=== PATIENT | male | born 1970 | race African-American/Black ===

== ENCOUNTER 2018-06-08 15:38 | Inpatient (IN) | payer OTHER ==
--- NOTE | 2018-06-08 17:28 | HP ---
CIWA Score Nausea/Vomitin Muscle Tremors: 1-None Visible, but [place] Anxiety: 3 Agitation: 3 Paroxysmal Sweats: 1-Minimal Palms Moist Orientation: 0-Oriented Tacttile Disturbances: 1-Very Mild Itch/Numbness Auditory Disturbances: 0-None Visual Disturbances: 0-None Headache: 3-Moderate CIWA-Ar Total Score: 15 - Admission Criteria OASAS Guidelines: Admission for Medically Managed Detox: Requires at least one of the followin. CIWA greater than 12 2. Seizures within the past 24 hours 3. Delirium tremens within the past 24 hours 4. Hallucinations within the past 24 hours 5. Acute intervention needed for co occurring medical disorder 6. Acute intervention needed for co occurring psychiatric disorder 7. Severe withdrawal that cannot be handled at a lower level of care (continued vomiting, continued diarrhea, abnormal vital signs) requiring intravenous medication and/or fluids 8. Patient presents the following: CIWA greater than 12 Admission Criteria Met: Admission criteria met Admission ROS S - HPI Chief Complaint: alcohol withdrawal sx Allergies/Adverse Reactions: Allergies Allergy/AdvReac Type Severity Reaction Status Date / Time No Known Allergies Allergy Verified 06/08/18 17:23 History of Present Illness: 47 yo male with hx of alcohol and nicotine dependence is here seeking detox, reports first admission to detox, reports referred by his paroled officer to compelte treatment. PMHX: GERD. Denies psych hx. Denies suicidal / homicidal ideation or suicide attempts. Denies hx of seizures or blackouts. Exam Limitations: No Limitations - Ebola screening Have you traveled outside of the country in the last 21 days: No Have you had contact with anyone from an Ebola affected area: No Do you have a fever: No - Review of Systems Constitutional: Loss of Appetite, Changes in sleep EENT: reports: No Symptoms Reported Respiratory: reports: No Symptoms reported Cardiac: reports: No Symptoms Reported GI: reports: Poor Appetite, Poor Fluid Intake, Abdominal cramping : reports: No Symptoms Reported Musculoskeletal: reports: No Symptoms Reported Integumentary: reports: Dryness Neuro: reports: No Symptoms reported Endocrine: reports: No Symptoms Reported Hematology: reports: No Symptoms Reported Psychiatric: reports: Orientated x3, Agitated Other Systems: Reviewed and Negative Patient History - Patient Medical History Hx Anemia: No Hx Asthma: No Hx Chronic Obstructive Pulmonary Disease (COPD): No Hx Cancer: No Hx Cardiac Disorders: No Hx Congestive Heart Failure: No Hx Hypertension: No Hx Hypercholesterolemia: No Hx Pacemaker: No HX Cerebrovascular Accident: No Hx Seizures: No Hx Dementia: No Hx Diabetes: No Hx Gastrointestinal Disorders: Yes (GERD) Hx Liver Disease: No Hx Genitourinary Disorders: No Hx Sexually Transmitted Disorders: No Hx Renal Disease (ESRD): No Hx Thyroid Disease: No Hx Human Immunodeficiency Virus (HIV): No Hx Hepatitis C: No Hx Depression: No Hx Suicide Attempt: No Hx Bipolar Disorder: No Hx Schizophrenia: No - Patient Surgical History Past Surgical History: Yes Other Surgical History: open heart 1985 - PPD History Previous Implant?: No - Smoking Cessation Smoking history: Current every day smoker Have you smoked in the past 12 months: Yes Aproximately how many cigarettes per day: 8 Hx Chewing Tobacco Use: No Initiated information on smoking cessation: Yes 'Breaking Loose' booklet given: 06/08/18 - Substance & Tx. History Hx Alcohol Use: Yes Hx Substance Use: Yes Substance Use Type: Alcohol Hx Substance Use Treatment: No - Substances abused Alcohol Substance route: Oral Frequency: 3-6 times per week Amount used: 10 nips Age of first use: 29 Date of last use: 06/08/18 Family Disease History - Family Disease History Family History: Denies Admission Physical Exam S - Vital Signs Vital Signs: Vital Signs - 24 hr 06/08/18 17:13 Temperature 97.4 F L Pulse Rate 85 Respiratory 18 Rate Blood Pressure 129/92 - Physical General Appearance: Yes: Disheveled, Mild Distress, Alcohol on Breath, Thin, Irritable, Anxious HEENTM: Yes: EOMI, Hearing grossly Normal, Normal ENT Inspection, Pharynx Normal , Tm's normal, Rhinorrhea, Other (cheilitis) Respiratory: Yes: Chest Non-Tender, Lungs Clear, Normal Breath Sounds, No Respiratory Distress, No Accessory Muscle Use Neck: Yes: Within Normal Limits Breast: Yes: Breast Exam Deferred Cardiology: Yes: Regular Rhythm, Regular Rate, Murmur Abdominal: Yes: Normal Bowel Sounds, Non Tender, Flat, Soft Genitourinary: Yes: Within Normal Limits Back: Yes: Normal Inspection Musculoskeletal: Yes: full range of Motion, Gait Steady, Pelvis Stable Extremities: Yes: Normal Capillary Refill, Normal Inspection, Normal Range of Motion, Non-Tender Neurological: Yes: check and transfer beader II-XII NML intact, Fully Oriented, Alert, Motor Strength 5/5, Depressed Affect Integumentary: Yes: Normal Color, Warm, Diaphoresis Lymphatic: Yes: Within Normal Limits - Diagnostic (1) Alcohol dependence with uncomplicated withdrawal Current Visit: Yes Status: Acute (2) Nicotine dependence Current Visit: Yes Status: Acute Qualifiers: Nicotine product type: cigarettes (3) GERD (gastroesophageal reflux disease) Current Visit: Yes Status: Chronic Cleared for Admission S - Detox or Rehab [facility] Level of Care: Medically Managed Detox Regimen/Protocol: Librium Breathalyzer - Breathalyzer Breathalyzer: 0.322 Urine Drug Screen - Test Device Lot number: [id number] Expiration date: 06/07/19 - Control Is test valid?: Yes - Results Drug screen NEGATIVE: Yes Inpatient Rehab Admission - Rehab Decision to Admit Inpatient rehab admission?: No
[2018-06-08] MEDS ORDERED: METHOCARBAMOL 500 MG TABLET PO PRN (17:35)
[2018-06-08] MEDS ORDERED: MAGNESIUM CITRATE 300 ML BOTTLE PO PRN (17:35)
[2018-06-08] MEDS ORDERED: MENTHOL/PHENOL 1 EACH UD MM PRN (17:35)
[2018-06-08] MEDS ORDERED: hydrOXYzine PAMOATE 25 MG CAPSULE (FP) PO PRN (17:35)
[2018-06-08] MEDS ORDERED: MAGNESIUM HYDROX 2400MG/30ML ORAL SUSPENSION 30 ML CUP PO PRN (17:35)
[2018-06-08] MEDS ORDERED: BISMUTH SUBSALICYLATE 524 MG/30 ML UD PO PRN (17:35)
[2018-06-08] MEDS ORDERED: ACETAMINOPHEN 325 MG TABLET (FP) PO PRN ×2 (17:35)
[2018-06-08] MEDS ORDERED: chlordiazePOXIDE HCL 25 MG CAPSULE PO PRN (17:35)
[2018-06-08] MEDS ORDERED: NICOTINE POLACRILEX 2 MG GUM BUC PRN (17:35)
[2018-06-08] MEDS: THIAMINE HCL 100 MG TABLET (FP) PO SCH (21:33)
[2018-06-08] MEDS: chlordiazePOXIDE HCL 25 MG CAPSULE PO SCH (22:46)
[2018-06-09] MEDS: chlordiazePOXIDE HCL 25 MG CAPSULE PO SCH ×4 (05:33→22:34)
[2018-06-09] MEDS: IBUPROFEN 400 MG TABLET (FP) PO PRN (05:33)
[2018-06-09] MEDS: MAG HYDROX/AL HYDROX/SIMETH 30 ML UNIT-DOSE CUP PO PRN (07:22)
[2018-06-09] MEDS ORDERED: ONDANSETRON *ODT* 4 MG TABLET SL PRN (08:54)
--- NOTE | 2018-06-09 08:57 | PN ---
[facility] CIWA - CIWA Score Nausea/Vomitin Muscle Tremors: 2 Anxiety: 2 Agitation: 2 Paroxysmal Sweats: 1-Minimal Palms Moist Orientation: 0-Oriented Tacttile Disturbances: 1-Very Mild Itch/Numbness Auditory Disturbances: 1-Very Mild Visual Disturbances: 0-None Headache: 2-Mild CIWA-Ar Total Score: 13 BHS Progress Note (SOAP) Subjective: alert,irritable,anxious,interrupted sleep,tremor,poor dental Objective: 06/09/18 08:55 Vital Signs Temperature 97.9 F 06/09/18 06:00 Pulse Rate 92 H 06/09/18 08:00 Respiratory Rate 18 06/09/18 08:00 Blood Pressure 140/87 06/09/18 06:00 O2 Sat by Pulse Oximetry (%) labs pending Assessment: 06/09/18 08:56 withdrawal symptom Plan: continue detox,full liquid diet,ensure plus 120 mls po bid
[2018-06-09 10:08] LABS: HEMATOCRIT 42.5 % (35.4-49); HEMOGLOBIN 14.4 GM/dL (11.7-16.9); MCH 32.8 pg (25.7-33.7); MCHC 33.8 g/dl (32.0-35.9); PLATELET COUNT 193 K/MM3 (134-434); RBC 4.38 M/mm3 (4.00-5.60); RDW 14.1 % (11.9-15.9)
[2018-06-09] MEDS: NICOTINE 14 MG/24 HOURS TOPICAL PATCH TD SCH (10:18)
[2018-06-09] MEDS: PRENATAL VITAMINS W/ FOLIC ACID TABLET (FP) PO SCH (10:18)
[2018-06-09 10:25] LABS: ALBUMIN 3.5 g/dl (3.4-5.0); ALK PHOS 74 U/L (45-117); ANION GAP 6 MMOL/L (8-16); BILIRUBIN,TOTAL 1.3 mg/dL (0.2-1); BLOOD UREA NITROGEN 5 mg/dL (7-18); CALCIUM 9.2 mg/dL (8.5-10.1); CHLORIDE 104 mmol/L (98-107); CO2 28 mmol/L (21-32); CREATININE 0.7 mg/dL (0.55-1.3); GLUCOSE,RANDOM 88 mg/dL (74-106); POTASSIUM 3.9 mmol/L (3.5-5.1); SGOT/AST 45 U/L (15-37); SGPT/ALT 38 U/L (13-61); SODIUM 137 mmol/L (136-145); TOT PROT 6.5 g/dl (6.4-8.2)
[2018-06-09 11:32] LABS: PH,URINE 6.5 (5.0-8.0); URINE APPEARANCE CLEAR; URINE BILIRUBIN NEGATIVE (NEGATIVE); URINE COLOR YELLOW; URINE GLUCOSE (UA) NEGATIVE (NEGATIVE); URINE KETONE NEGATIVE (NEGATIVE); URINE LEUK ESTERASE NEGATIVE (NEGATIVE); URINE NITRITE NEGATIVE (NEGATIVE); URINE PROTEIN NEGATIVE (NEGATIVE); URINE UROBILINOGEN 0.2 mg/dL (0.2-1.0)
--- NOTE | 2018-06-09 14:46 | EKG ---
Test Reason : Blood Pressure : / mmHG Vent. Rate : 062 BPM Atrial Rate : 062 BPM P-R Int : 148 ms QRS Dur : 130 ms QT Int : 470 ms P-R-T Axes : 020 018 -72 degrees QTc Int : 477 ms NORMAL SINUS RHYTHM RIGHT BUNDLE BRANCH BLOCK SEPTAL INFARCT , AGE UNDETERMINED T WAVE ABNORMALITY, CONSIDER INFEROLATERAL ISCHEMIA ABNORMAL ECG NO PREVIOUS ECGS AVAILABLE Confirmed by Benjamín Sandhu ([id number]) on 06/09/2018 2:45:31 PM Referred By: Confirmed By:Benjamín Sandhu
[2018-06-09] MEDS: MELATONIN 5 MG TABLETS PO PRN (22:34)
[2018-06-09] MEDS: THIAMINE HCL 100 MG TABLET (FP) PO SCH (22:34)
[2018-06-10] MEDS: chlordiazePOXIDE HCL 25 MG CAPSULE PO SCH ×3 (05:38→18:23)
--- NOTE | 2018-06-10 10:24 | PN ---
[facility] CIWA - CIWA Score Nausea/Vomitin-Mild Nausea/No Vomiting Muscle Tremors: 2 Anxiety: 1-Mildly Anxious Agitation: 1-Slight > Activity Paroxysmal Sweats: 1-Minimal Palms Moist Orientation: 0-Oriented Tacttile Disturbances: 0-None Auditory Disturbances: 0-None Visual Disturbances: 0-None Headache: 0-None Present CIWA-Ar Total Score: 6 BHS Progress Note (SOAP) Subjective: Pt states doing well overall. Day #3 of detox protocol O: Vital Signs - 24 hr 06/09/18 06/09/18 06/09/18 10:30 11:00 11:30 Temperature Pulse Rate 88 84 75 Respiratory 18 16 16 Rate Blood Pressure 06/09/18 06/09/18 06/09/18 12:00 12:30 13:00 Temperature Pulse Rate 84 88 84 Respiratory 16 18 16 Rate Blood Pressure 06/09/18 06/09/18 06/09/18 13:30 14:00 15:00 Temperature Pulse Rate 84 84 75 Respiratory 16 16 16 Rate Blood Pressure 06/09/18 06/09/18 06/09/18 15:30 16:00 16:30 Temperature Pulse Rate 74 69 71 Respiratory 16 18 Rate Blood Pressure 06/09/18 06/09/18 06/09/18 16:45 17:00 17:30 Temperature 98.1 F Pulse Rate 71 71 80 Respiratory 18 Rate Blood Pressure 153/88 06/09/18 06/09/18 06/09/18 18:00 18:30 19:00 Temperature Pulse Rate 88 92 H 78 Respiratory Rate Blood Pressure 06/09/18 06/09/18 06/10/18 21:05 21:55 00:30 Temperature 97.7 F 97.7 F Pulse Rate 68 84 Respiratory 16 16 18 Rate Blood Pressure 135/101 H 122/77 06/10/18 06/10/18 06/10/18 03:30 07:43 09:04 Temperature 98.2 F 97.7 F Pulse Rate 68 98 H Respiratory 18 18 18 Rate Blood Pressure 121/83 135/94 Laboratory Tests 06/08/18 06/09/18 06/09/18 18:30 07:00 07:00 WBC 3.0 L RBC 4.38 Hgb 14.4 Hct 42.5 MCV 97.0 H MCH 32.8 MCHC 33.8 RDW 14.1 Plt Count 193 MPV 8.0 Sodium 137 Potassium 3.9 Chloride 104 Carbon Dioxide 28 Anion Gap 6 L BUN 5 L Creatinine 0.7 Creat Clearance w eGFR 120.37 Random Glucose 88 Calcium 9.2 Total Bilirubin 1.3 H AST 45 H ALT 38 Alkaline Phosphatase 74 Total Protein 6.5 Albumin 3.5 Urine Color Yellow Urine Appearance Clear Urine pH 6.5 Ur Specific [place] 1.006 L Urine Protein Negative Urine Glucose (UA) Negative Urine Ketones Negative Urine Blood Negative Urine Nitrite Negative Urine Bilirubin Negative Urine Urobilinogen 0.2 Ur Leukocyte Esterase Negative RPR Titer 06/09/18 07:00 WBC RBC Hgb Hct MCV MCH MCHC RDW Plt Count MPV Sodium Potassium Chloride Carbon Dioxide Anion Gap BUN Creatinine Creat Clearance w eGFR Random Glucose Calcium Total Bilirubin AST ALT Alkaline Phosphatase Total Protein Albumin Urine Color Urine Appearance Urine pH Ur Specific [place] Urine Protein Urine Glucose (UA) Urine Ketones Urine Blood Urine Nitrite Urine Bilirubin Urine Urobilinogen Ur Leukocyte Esterase RPR Titer Nonreactive labs-elevated Bili and AST presume liver damage due to alcohol use and VS WNL a/p: continue alcohol detox protocol- pt seems to be doing well
[2018-06-10] MEDS: PRENATAL VITAMINS W/ FOLIC ACID TABLET (FP) PO SCH (10:41)
[2018-06-10] MEDS: NICOTINE 14 MG/24 HOURS TOPICAL PATCH TD SCH (10:42)
[2018-06-10] MEDS: IBUPROFEN 400 MG TABLET (FP) PO PRN ×2 (10:43→19:08)
[2018-06-10] MEDS: MAG HYDROX/AL HYDROX/SIMETH 30 ML UNIT-DOSE CUP PO PRN ×2 (11:21→19:08)
--- NOTE | 2018-06-10 14:53 | PN ---
BHS Progress Note Note: Vital Signs Temperature 97.7 F 06/10/18 09:04 Pulse Rate 98 H 06/10/18 09:04 Respiratory Rate 18 06/10/18 09:04 Blood Pressure 135/94 06/10/18 09:04 O2 Sat by Pulse Oximetry (%) Patient evaluated by metal flow coordinator rec: reg diet with ensure BID. patients orders updated as per metal flow coordinator recommendations.
[2018-06-10] MEDS: THIAMINE HCL 100 MG TABLET (FP) PO SCH (22:00)
[2018-06-10] MEDS: MELATONIN 5 MG TABLETS PO PRN (22:00)
[2018-06-10] MEDS: chlordiazePOXIDE HCL 10 MG CAPSULE PO SCH (22:01)
[2018-06-10] MEDS ORDERED: chlordiazePOXIDE HCL 10 MG CAPSULE PO PRN (23:00)
[2018-06-11] MEDS: chlordiazePOXIDE HCL 10 MG CAPSULE PO SCH (06:34)
[2018-06-11 07:21] VITALS: BP 120/73; PULSE 93; TEMP 98.1
--- NOTE | 2018-06-11 08:25 | DS ---
[facility] Detox Discharge Summary Admission Date: 06/08/18 Discharge Date: 06/11/18 - History Present History: Alcohol Dependence - Physical Exam Results Vital Signs: Vital Signs Temperature 98.1 F 06/11/18 07:15 Pulse Rate 93 H 06/11/18 07:15 Respiratory Rate 18 06/11/18 07:15 Blood Pressure 120/73 06/11/18 07:15 O2 Sat by Pulse Oximetry (%) - Treatment Hospital Course: Detox Protocol Followed, Detoxed Safely, Responded well, Discharged Condition Good, Rehab Referral Accepted - Medication Discharge Medications: Ambulatory Orders NK [No Known Home Medication] 06/09/18 - Diagnosis (1) Alcohol dependence with uncomplicated withdrawal Current Visit: Yes Status: Chronic (2) Nicotine dependence Current Visit: Yes Status: Chronic Qualifiers: Nicotine product type: cigarettes Substance use status: uncomplicated Qualified Code(s): F17.210 - Nicotine dependence, cigarettes, uncomplicated (3) GERD (gastroesophageal reflux disease) Current Visit: Yes Status: Chronic Qualifiers: Esophagitis presence: without esophagitis Qualified Code(s): K21.9 - Gastro -esophageal reflux disease without esophagitis - AMA Did Patient Leave Against Medical Advice: No ([facility])
[2018-06-11] MEDS ORDERED: chlordiazePOXIDE HCL 10 MG CAPSULE PO SCH (23:00)
== END 2018-06-11 09:01 | disposition home or self-care (01) | DRG 775 ==
LOC: YASAS 15:38 → Y6N 18:23
PROVIDERS: ADMIT Surgery; ATTEND Surgery
PROC: HZ2ZZZZ Detoxification Services for Substance Abuse Treatment (ICD-10-PCS; principal; 2018-06-08)
DX: F10.230 Alcohol dependence with withdrawal, uncomplicated (principal); F17.210 Nicotine dependence, cigarettes, uncomplicated; K21.9 Gastro-esophageal reflux disease without esophagitis; R74.0 Nonspecific elevation of levels of transaminase and lactic acid dehydrogenase [LDH]; R01.1 Cardiac murmur, unspecified; E80.7 Disorder of bilirubin metabolism, unspecified
CPT/HCPCS: 36415; 80053; 81003; 85027; 86593; 93005; 93010

== ENCOUNTER 2018-10-29 13:06 | Emergency (ER) | payer OTHER ==
[2018-10-29 13:51] VITALS: BP 131/100; PULSE 72; TEMP 97.6; BMI 22.8
--- NOTE | 2018-10-29 15:03 | PDOC ---
History of Present Illness - General Chief Complaint: Alcohol intoxication Stated Complaint: INTOX Time Seen by Provider: 10/29/18 14:45 - History of Present Illness Initial Comments: 10/29/18 16:33 47m with pmh of alcohol abuse sent from [facility] for acohol and benzo intoxication. Due to his pupils looking constricted, was given 4mg of Narcan to which he didn' t react. Patient's vital are normal in the ED and after a brief episode of vague protests punctuated by onomatopoeia and urinary release, he fell back into asleep,. Respiratory rate monitored. Past History - Past Medical History Allergies/Adverse Reactions: Allergies Allergy/AdvReac Type Severity Reaction Status Date / Time No Known Allergies Allergy Verified 06/08/18 17:23 Home Medications: Ambulatory Orders NK [No Known Home Medication] 06/09/18 Anemia: No Asthma: No Cancer: No Cardiac Disorders: No CVA: No COPD: No CHF: No Dementia: No Diabetes: No GI Disorders: Yes (GERD) Disorders: No HTN: No Hypercholesterolemia: No Kidney Stones: No Liver Disease: No Seizures: No Thyroid Disease: No - Surgical History Abdominal Surgery: No Appendectomy: No Cardiac Surgery: No Cholecystectomy: No Lung Surgery: No Neurologic Surgery: No Orthopedic Surgery: No - Reproductive History Testicular Surgery: No - Suicide/Smoking/Psychosocial Hx Smoking History: Smoker current status UNK Have you smoked in the past 12 months: No Number of Cigarettes Smoked Daily: 8 Information on smoking cessation initiated: No 'Breaking Loose' booklet given: 06/08/18 Hx Alcohol Use: Yes Drug/Substance Use Hx: Yes Substance Use Type: Alcohol Hx Substance Use Treatment: No Review of Systems - Review of Systems Able to Perform ROS?: No (intoxicated.) Is the patient limited Andorran proficient: No *Physical Exam - Vital Signs Last Vital Signs Temp Pulse Resp BP Pulse Ox 97.6 F 72 18 131/100 96 10/29/18 13:20 10/29/18 13:20 10/29/18 13:20 10/29/18 13:20 10/29/18 13:20 - Physical Exam General Appearance: Yes: Intoxicated HEENT: positive: EOMI, STEVEN, Normal ENT Inspection, Other (miosis) Respiratory/Chest: positive: Lungs Clear, Normal Breath Sounds. negative: Chest Tender, Respiratory Distress Cardiovascular: positive: Regular Rhythm, Regular Rate, S1, S2 Gastrointestinal/Abdominal: positive: Normal Bowel Sounds, Flat, Soft. negative : Tender Musculoskeletal: positive: Normal Inspection. negative: CVA Tenderness Extremity: positive: Normal Capillary Refill, Normal Inspection, Normal Range of Motion Neurologic: positive: Normal Mood/Affect, Normal Response Medical Decision Making - Medical Decision Making 10/29/18 16:39 47m with alcohol and benzo intoxication. Will waiting for sobriety and send back to [facility]. 10/29/18 19:06 Patient signed out to Dr. Lau *DC/Admit/Observation/Transfer Diagnosis at time of Disposition: Benzodiazepine abuse, Alcohol abuse - Referrals - Patient Instructions - Post Discharge Activity
--- NOTE | 2018-10-29 15:52 | PDOC ---
Documentation entered by Italo Larson SCRIBE, acting as scribe for Rowena Miller MD. Rowena Miller MD: This documentation has been prepared by the Neo remy Daniel, SCRIBE, under my direction and personally reviewed by me in its entirety. I confirm that the documentation accurately reflects all work, treatment, procedures, and medical decision making performed by me. Attending Attestation - Resident Resident Name: EstefaniEdward - ED Attending Attestation I have performed the following: I have examined & evaluated the patient, The case was reviewed & discussed with the resident, I agree w/resident's findings & plan - HPI HPI: 10/29/18 15:54 The patient is a 47 year old male with a past medical history of benzos and alcohol abuse here today for evaluation of intoxication. The patient was seen at [facility] and given narcan and then sent to the ED for evaluation. Patient and his deny taking anything today. Allergies: NKA - Physicial Exam PE: 10/29/18 16:29 Agree with the resident's HPI and PE as documented in the electronic medical record. sleeping comfortably, EOMI, PERRL, ciliary injection bilaterally; neck supple. lungs clear, RRR, abdomen soft nontender. Back nontender. PRIEST x4, no focal neuro deficits. No peripheral edema. normal color for ethnicity, WWP. - Medical Decision Making 10/29/18 15:51 See HPI for details. Prior notes reviewed, including admissions, discharges and consultations. Vital signs reviewed, +hypertensive Vital Signs Temp Pulse Resp BP Pulse Ox 97.6 F 72 18 131/100 96 10/29/18 13:20 10/29/18 13:20 10/29/18 13:20 10/29/18 13:20 10/29/18 13:20 DDx. alcohol intoxication, alcohol withdrawal. drug intoxication Patient demonstrates clinical evidence for alcohol intoxication. while here pt had urinated on the floor and had an outburst since then he has been sleeping in bed s/p narcan, monitor and sobriety checks. The patient admits to intentional heavy drinking of alcohol and denies fall or injury. The patient also denies drug use. Some of the history and physical exam is limited due to the state of intoxication. All clothes were removed, all parts of the body were evaluated and there is no evidence of acute trauma. The plan is to observe patient in the ED until clinical sobriety is reached and reassess history and physical examination. pt monitored closely in the ED, sobriety hold. remained comfortable, no acute events, VS remain stable. will be offered detox and resources for ETOH/benzo abuse. prompt follow up encouraged. 10/29/18 16:26 10/29/18 16:28
[2018-10-29] MEDS ORDERED: ACETAMINOPHEN 325 MG TABLET (FP) PO ONE (19:21)
--- NOTE | 2018-10-29 19:56 | PDOC ---
*Physical Exam - Vital Signs Last Vital Signs Temp Pulse Resp BP Pulse Ox 97.6 F 72 18 131/100 96 10/29/18 13:20 10/29/18 13:20 10/29/18 13:20 10/29/18 13:20 10/29/18 13:20 Medical Decision Making - Medical Decision Making Pt was signed out to me by resident Dr. Jara, who explained the presentation, ED course, any pending results, and needed interventions. Pending results include clinical sobriety. Pt is supposed to go back to [facility] detox if he agrees. 10/29/18 19:55 Pt clinically sober (no nystagmus, speaking in full sentences). Calling [facility] and security for detox. No signs of withdrawal. 10/29/18 21:27 [facility] has bed available. Pt ready for discharge. 10/29/18 21:36 *DC/Admit/Observation/Transfer Diagnosis at time of Disposition: Benzodiazepine abuse, Alcohol abuse - Referrals - Patient Instructions - Post Discharge Activity
[2018-10-29] MEDS ORDERED: ACETAMINOPHEN 325 MG TABLET (FP) ONE (20:38)
== END 2018-10-29 21:54 | disposition home or self-care (01) ==
LOC: JER 13:06
DX: F10.10 Alcohol abuse, uncomplicated (principal); F13.10 Sedative, hypnotic or anxiolytic abuse, uncomplicated
CPT/HCPCS: 99281-25

== ENCOUNTER 2018-10-29 22:20 | Inpatient (IN) | payer OTHER ==
--- NOTE | 2018-10-29 12:51 | HP ---
CIWA Score - Admission Criteria OASAS Guidelines: Admission for Medically Managed Detox: Requires at least one of the followin. CIWA greater than 12 2. Seizures within the past 24 hours 3. Delirium tremens within the past 24 hours 4. Hallucinations within the past 24 hours 5. Acute intervention needed for co occurring medical disorder 6. Acute intervention needed for co occurring psychiatric disorder 7. Severe withdrawal that cannot be handled at a lower level of care (continued vomiting, continued diarrhea, abnormal vital signs) requiring intravenous medication and/or fluids 8. Admission ROS [facility] - HPI Allergies/Adverse Reactions: Allergies Allergy/AdvReac Type Severity Reaction Status Date / Time No Known Allergies Allergy Verified 10/29/18 22:59 - Ebola screening Have you traveled outside of the country in the last 21 days: No (N) Have you had contact with anyone from an Ebola affected area: No Do you have a fever: No Patient History - Patient Medical History Hx Anemia: No Hx Asthma: No Hx Chronic Obstructive Pulmonary Disease (COPD): No Hx Cancer: No Hx Cardiac Disorders: No Hx Congestive Heart Failure: No Hx Hypertension: No Hx Hypercholesterolemia: No Hx Pacemaker: No HX Cerebrovascular Accident: No Hx Seizures: No Hx Dementia: No Hx Diabetes: No Hx Gastrointestinal Disorders: Yes (GERD) Hx Liver Disease: No Hx Genitourinary Disorders: No Hx Sexually Transmitted Disorders: No Hx Renal Disease (ESRD): No Hx Thyroid Disease: No Hx Human Immunodeficiency Virus (HIV): No Hx Hepatitis C: No Hx Depression: No Hx Suicide Attempt: No Hx Bipolar Disorder: No Hx Schizophrenia: No - Patient Surgical History Past Surgical History: Yes Hx Neurologic Surgery: No Hx Cataract Extraction: No Hx Cardiac Surgery: No Hx Lung Surgery: No Hx Breast Surgery: No Hx Breast Biopsy: No Hx Abdominal Surgery: No Hx Appendectomy: No Hx Cholecystectomy: No Hx Genitourinary Surgery: No Hx Section: No Hx Orthopedic Surgery: No Other Surgical History: open heart 1985 Anesthesia Reaction: No - PPD History Date: 06/10/18 - Smoking Cessation Smoking history: Current every day smoker Have you smoked in the past 12 months: Yes Aproximately how many cigarettes per day: 8 Hx Chewing Tobacco Use: No Initiated information on smoking cessation: Yes 'Breaking Loose' booklet given: 10/29/18 - Substances abused Alcohol Substance route: Oral Frequency: 3-6 times per week Amount used: 10 nips Age of first use: 29 Date of last use: 06/08/18 Admission Physical Exam [facility] - Vital Signs Vital Signs: Vital Signs - 24 hr 10/29/18 12:26 Pulse Rate 81 Respiratory 18 Rate Blood Pressure 125/88 Screened but not Admitted - Documentation of Visit Screened but not Admitted: Yes Level of Care Recommended at this Time: ER Evaluation/Care Additional Information/Explanation: this 47 years old presence in [facility]. patient has alter mental status. labour breathing. bp 125/88,p81,r18,pupil constricted both side. known case of alcohol dependence,gerd,no know allery from previous record. intranasal narcn 4 mgs given. patient responded,and fell to sleep. urine for drug screen showed bzo. patient to be trasported to [facility] er for evaluation ,stabilization and treatment,repot given to dr Penny Pollock,to be transpoted by [facility] Breathalyzer - Breathalyzer Breathalyzer: 0.265 Urine Drug Screen - Test Device Lot number: [id number] Expiration date: 06/07/19 - Control Is test valid?: Yes - Results Drug screen NEGATIVE: No Urine drug screen results: BZO-Benzodiazepines Inpatient Rehab Admission - Rehab Decision to Admit Inpatient rehab admission?: No
[2018-10-29 23:11] VITALS: BMI 23.4
--- NOTE | 2018-10-29 23:33 | HP ---
CIWA Score Nausea/Vomitin Muscle Tremors: 3 Anxiety: 3 Agitation: 3 Paroxysmal Sweats: 2 Orientation: 1-Uncertain about Date Tacttile Disturbances: 0-None Auditory Disturbances: 0-None Visual Disturbances: 0-None Headache: 0-None Present CIWA-Ar Total Score: 14 - Admission Criteria OASAS Guidelines: Admission for Medically Managed Detox: Requires at least one of the followin. CIWA greater than 12 2. Seizures within the past 24 hours 3. Delirium tremens within the past 24 hours 4. Hallucinations within the past 24 hours 5. Acute intervention needed for co occurring medical disorder 6. Acute intervention needed for co occurring psychiatric disorder 7. Severe withdrawal that cannot be handled at a lower level of care (continued vomiting, continued diarrhea, abnormal vital signs) requiring intravenous medication and/or fluids 8. Admission ROS [facility] Chief Complaint: Alcohol withdrawal symptoms Allergies/Adverse Reactions: Allergies Allergy/AdvReac Type Severity Reaction Status Date / Time No Known Allergies Allergy Verified 10/29/18 22:59 History of Present Illness: 47 years old male wit5h a long history of alcohol dependence is seeking admission to detox. Patient was received from ER where he was sent for further evaluation due to altered mental status. He reports insignificant period of sobriety. He has history of GERD and denies suicidal ideation at this time Exam Limitations: No Limitations - Ebola screening Have you traveled outside of the country in the last 21 days: No (N) Have you had contact with anyone from an Ebola affected area: No Do you have a fever: No - Review of Systems Constitutional: Loss of Appetite, Malaise, Night Sweats, Changes in sleep EENT: reports: No Symptoms Reported Respiratory: reports: No Symptoms reported Cardiac: reports: No Symptoms Reported GI: reports: Nausea, Poor Appetite, Poor Fluid Intake, Abdominal cramping : reports: No Symptoms Reported Musculoskeletal: reports: No Symptoms Reported, Joint Pain Integumentary: reports: Dryness, Flushing Neuro: reports: Tremors Endocrine: reports: No Symptoms Reported Hematology: reports: No Symptoms Reported Psychiatric: reports: Mood/Affect Appropiate, Orientated x3 Other Systems: Reviewed and Negative Patient History - Patient Medical History Hx Anemia: No Hx Asthma: No Hx Chronic Obstructive Pulmonary Disease (COPD): No Hx Cancer: No Hx Cardiac Disorders: No Hx Congestive Heart Failure: No Hx Hypertension: No Hx Hypercholesterolemia: No Hx Pacemaker: No HX Cerebrovascular Accident: No Hx Seizures: No Hx Dementia: No Hx Diabetes: No Hx Gastrointestinal Disorders: Yes (GERD) Hx Liver Disease: No Hx Genitourinary Disorders: No Hx Sexually Transmitted Disorders: No Hx Renal Disease (ESRD): No Hx Thyroid Disease: No Hx Human Immunodeficiency Virus (HIV): No Hx Hepatitis C: No Hx Depression: No Hx Suicide Attempt: No (Denies suicidal ideation at this time) Hx Bipolar Disorder: No Hx Schizophrenia: No - Patient Surgical History Past Surgical History: Yes Hx Neurologic Surgery: No Hx Cataract Extraction: No Hx Cardiac Surgery: No Hx Lung Surgery: No Hx Breast Surgery: No Hx Breast Biopsy: No Hx Abdominal Surgery: No Hx Appendectomy: No Hx Cholecystectomy: No Hx Genitourinary Surgery: No Hx Section: No Hx Orthopedic Surgery: No Other Surgical History: open heart 1985 Anesthesia Reaction: No - PPD History Previous Implant?: Yes Documented Results: Negative w/proof Implanted On Prior [facility] Admission?: Yes Date: 06/10/18 PPD to be Administered?: No - Reproductive History Patient is a Female of Child Bearing Age (11 -55 yrs old): No (male) - Smoking Cessation Smoking history: Current every day smoker Have you smoked in the past 12 months: Yes Aproximately how many cigarettes per day: 8 Hx Chewing Tobacco Use: No Initiated information on smoking cessation: Yes 'Breaking Loose' booklet given: 10/29/18 - Substance & Tx. History Hx Alcohol Use: Yes Hx Substance Use: No Substance Use Type: Alcohol Hx Substance Use Treatment: Yes ([facility]) - Substances abused Alcohol Substance route: Oral Frequency: Daily Amount used: 1 PINT ,3 - 12 ounce/lisa Age of first use: 29 Date of last use: 10/29/18 Family Disease History - Family Disease History Family History: Denies Admission Physical Exam BHS - Vital Signs Vital Signs: Vital Signs - 24 hr 10/29/18 10/29/18 12:26 23:00 Temperature 96.1 F L Pulse Rate 81 89 Respiratory 18 18 Rate Blood Pressure 125/88 132/92 - Physical General Appearance: Yes: Within Normal Limits, Moderate Distress HEENTM: Yes: Within Normal Limits, EOMI, Normal Voice Respiratory: Yes: Lungs Clear, Normal Breath Sounds, No Respiratory Distress Neck: Yes: Supple Breast: Yes: Breast Exam Deferred Cardiology: Yes: Regular Rhythm, Regular Rate Abdominal: Yes: Normal Bowel Sounds, Soft Genitourinary: Yes: Within Normal Limits Back: Yes: Normal Inspection Musculoskeletal: Yes: Gait Steady Extremities: Yes: Tremors 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 intact, Alert, Normal Mood/Affect Integumentary: Yes: Warm Lymphatic: Yes: Within Normal Limits - Diagnostic (1) Alcohol dependence with uncomplicated withdrawal Current Visit: Yes Status: Acute (2) GERD (gastroesophageal reflux disease) Current Visit: Yes Status: Chronic Qualifiers: Esophagitis presence: without esophagitis Qualified Code(s): K21.9 - Gastro -esophageal reflux disease without esophagitis (3) Nicotine dependence Current Visit: Yes Status: Chronic Qualifiers: Nicotine product type: cigarettes Substance use status: uncomplicated Qualified Code(s): F17.210 - Nicotine dependence, cigarettes, uncomplicated Cleared for Admission BHS - Detox or Rehab [facility] Level of Care: Medically Managed Detox Regimen/Protocol: Librium Breathalyzer - Breathalyzer Breathalyzer: 0.117 Urine Drug Screen - Test Device Lot number: [id number] Expiration date: 08/07/20 - Control Is test valid?: Yes - Results Drug screen NEGATIVE: No Urine drug screen results: BZO-Benzodiazepines Inpatient Rehab Admission - Rehab Decision to Admit Inpatient rehab admission?: No
[2018-10-29] MEDS ORDERED: BISMUTH SUBSALICYLATE 524 MG/30 ML UD PO PRN (23:38)
[2018-10-29] MEDS ORDERED: MAGNESIUM HYDROX 2400MG/30ML ORAL SUSPENSION 30 ML CUP PO PRN (23:38)
[2018-10-29] MEDS ORDERED: ACETAMINOPHEN 325 MG TABLET (FP) PO PRN ×2 (23:38)
[2018-10-29] MEDS ORDERED: MELATONIN 5 MG TABLETS PO PRN (23:38)
[2018-10-29] MEDS ORDERED: METHOCARBAMOL 500 MG TABLET PO PRN (23:38)
[2018-10-29] MEDS ORDERED: MENTHOL/PHENOL 1 EACH UD MM PRN (23:38)
[2018-10-29] MEDS ORDERED: hydrOXYzine PAMOATE 25 MG CAPSULE (FP) PO PRN (23:38)
[2018-10-29] MEDS ORDERED: NICOTINE POLACRILEX 2 MG GUM BUC PRN (23:38)
[2018-10-29] MEDS ORDERED: ONDANSETRON *ODT* 4 MG TABLET SL PRN (23:38)
[2018-10-29] MEDS ORDERED: IBUPROFEN 400 MG TABLET (FP) PO PRN (23:38)
[2018-10-29] MEDS ORDERED: MAGNESIUM CITRATE 300 ML BOTTLE PO PRN (23:38)
[2018-10-29] MEDS ORDERED: MAG HYDROX/AL HYDROX/SIMETH 30 ML UNIT-DOSE CUP PO PRN (23:38)
[2018-10-29] MEDS ORDERED: chlordiazePOXIDE HCL 25 MG CAPSULE PO PRN (23:42)
[2018-10-30] MEDS: chlordiazePOXIDE HCL 25 MG CAPSULE PO SCH ×5 (00:24→22:30)
[2018-10-30] MEDS: NICOTINE 14 MG/24 HOURS TOPICAL PATCH TD SCH (10:18)
[2018-10-30] MEDS: PRENATAL VITAMINS W/ FOLIC ACID TABLET (FP) PO SCH (10:18)
[2018-10-30 10:37] LABS: HEMATOCRIT 46.9 % (35.4-49); MCH 32.1 pg (25.7-33.7); MCHC 34.2 g/dl (32.0-35.9); MEAN CELL VOLUME 93.8 fl (80-96); MEAN PLT VOLUME 8.4 fl (7.5-11.1); PLATELET COUNT 80 K/MM3 (134-434); RDW 13.6 % (11.9-15.9); WHITE BLOOD COUNT 2.3 K/mm3 (4.0-10.0)
[2018-10-30 10:52] LABS: ALBUMIN 3.6 g/dl (3.4-5.0); BLOOD UREA NITROGEN 5.1 mg/dL (7-18); CREATININE 0.7 mg/dL (0.55-1.3); POTASSIUM 3.2 mmol/L (3.5-5.1); TOT PROT 6.7 g/dl (6.4-8.2)
--- NOTE | 2018-10-30 12:09 | PN ---
S CIWA - CIWA Score Nausea/Vomitin-No Nausea/No Vomiting Muscle Tremors: 3 Anxiety: 3 Agitation: 3 Paroxysmal Sweats: 3 Orientation: 0-Oriented Tacttile Disturbances: 0-None Auditory Disturbances: 0-None Visual Disturbances: 0-None Headache: 0-None Present CIWA-Ar Total Score: 12 BHS Progress Note (SOAP) Subjective: sweats shakes irritable agitation body aches Objective: 10/30/18 12:05 Vital Signs Temperature 96.3 F L 10/30/18 09:46 Pulse Rate 114 H 10/30/18 09:46 Respiratory Rate 20 10/30/18 09:46 Blood Pressure 163/82 10/30/18 09:46 O2 Sat by Pulse Oximetry (%) Laboratory Tests 10/30/18 10/30/18 10/30/18 07:00 07:00 07:00 WBC 2.3 L RBC 5.00 Hgb 16.0 Hct 46.9 MCV 93.8 MCH 32.1 MCHC 34.2 RDW 13.6 Plt Count 80 L D MPV 8.4 Sodium 141 Potassium 3.2 L Chloride 103 Carbon Dioxide 30 Anion Gap 8 BUN 5.1 L Creatinine 0.7 Est GFR (CKD-EPI)AfAm 129.34 Est GFR (CKD-EPI)NonAf 111.59 Random Glucose 90 Calcium 9.0 Total Bilirubin 2.0 H AST 36 ALT 22 Alkaline Phosphatase 80 Total Protein 6.7 Albumin 3.6 RPR Titer Nonreactive labs noted mild hypokalemia 3.2 k-dur 40meq x one aaox3 lying in bed no acute distress Assessment: 10/30/18 12:07 withdrawal sx Plan: continue detox increase fluids kdur 40meq x one
[2018-10-30] MEDS ORDERED: POTASSIUM CHLORIDE TABS 20 MEQ TABLET.ER (FP) PO ONE (13:15)
[2018-10-30] MEDS ORDERED: THIAMINE HCL 100 MG TABLET (FP) PO SCH (22:00)
[2018-10-31] MEDS: chlordiazePOXIDE HCL 25 MG CAPSULE PO SCH ×2 (07:26→10:36)
[2018-10-31 09:57] VITALS: BP 107/72; PULSE 91; TEMP 99
[2018-10-31] MEDS: NICOTINE 14 MG/24 HOURS TOPICAL PATCH TD SCH (10:36)
[2018-10-31] MEDS: PRENATAL VITAMINS W/ FOLIC ACID TABLET (FP) PO SCH (10:36)
--- NOTE | 2018-10-31 14:14 | DS ---
[facility] Detox Discharge Summary Admission Date: 10/29/18 Discharge Date: 10/31/18 (Left AMA) - History Present History: Alcohol Dependence Additional Comments: Pt left AMA. Pt did not complete his detox protocol. Attempt to let pt stay and complete his detox protocol failed. Pt states, he has something important to go and take care of it. Pt is encouraged to follow-up with [facility] outpatient program and also to follow-up with his PMD. Pt verbalized understanding. Pt is alert and oriented x3 and in no respiratory distress. Pertinent Past History: H/O GERD and alcohol use disorder. - Physical Exam Results Vital Signs: Vital Signs Temperature 99.0 F 10/31/18 09:56 Pulse Rate 91 H 10/31/18 09:56 Respiratory Rate 18 10/31/18 09:56 Blood Pressure 107/72 10/31/18 09:56 O2 Sat by Pulse Oximetry (%) Vital Signs 10/31/18 09:56 Temperature 99.0 F Pulse Rate 91 H Respiratory 18 Rate Blood Pressure 107/72 Lab Results WBC 2.3 K/mm3 (4.0-10.0) L 10/30/18 07:00 RBC 5.00 M/mm3 (4.00-5.60) 10/30/18 07:00 Hgb 16.0 GM/dL (11.7-16.9) 10/30/18 07:00 Hct 46.9 % (35.4-49) 10/30/18 07:00 MCV 93.8 fl (80-96) 10/30/18 07:00 MCHC 34.2 g/dl (32.0-35.9) 10/30/18 07:00 RDW 13.6 % (11.9-15.9) 10/30/18 07:00 Plt Count 80 K/MM3 (134-434) L D 10/30/18 07:00 Sodium 141 mmol/L (136-145) 10/30/18 07:00 Potassium 3.2 mmol/L (3.5-5.1) L 10/30/18 07:00 Chloride 103 mmol/L (98-107) 10/30/18 07:00 Carbon Dioxide 30 mmol/L (21-32) 10/30/18 07:00 Anion Gap 8 MMOL/L (8-16) 10/30/18 07:00 BUN 5.1 mg/dL (7-18) L 10/30/18 07:00 Creatinine 0.7 mg/dL (0.55-1.3) 10/30/18 07:00 Random Glucose 90 mg/dL (74-106) 10/30/18 07:00 Calcium 9.0 mg/dL (8.5-10.1) 10/30/18 07:00 Labs noted. Pertinent Admission Physical Exam Findings: withdrawal symptoms. - Treatment Hospital Course: Detox Protocol Followed - Medication Discharge Medications: Ambulatory Orders NK [No Known Home Medication] 06/09/18 - Diagnosis (1) Alcohol abuse Status: Acute (2) GERD (gastroesophageal reflux disease) Status: Chronic Qualifiers: Esophagitis presence: without esophagitis Qualified Code(s): K21.9 - Gastro -esophageal reflux disease without esophagitis (3) Nicotine dependence Status: Chronic Qualifiers: Nicotine product type: cigarettes Substance use status: uncomplicated Qualified Code(s): F17.210 - Nicotine dependence, cigarettes, uncomplicated - AMA Did Patient Leave Against Medical Advice: Yes [facility] CIWA - CIWA Score Nausea/Vomitin-No Nausea/No Vomiting Muscle Tremors: 2 Anxiety: 3 Agitation: 0-Normal Activity Paroxysmal Sweats: 3 Orientation: 0-Oriented Tacttile Disturbances: 0-None Auditory Disturbances: 0-None Visual Disturbances: 0-None Headache: 2-Mild CIWA-Ar Total Score: 10
[2018-11-01] MEDS ORDERED: chlordiazePOXIDE HCL 10 MG CAPSULE PO PRN
[2018-11-01] MEDS ORDERED: chlordiazePOXIDE HCL 10 MG CAPSULE PO SCH (05:00)
[2018-11-02] MEDS ORDERED: chlordiazePOXIDE HCL 10 MG CAPSULE PO SCH (05:00)
[2018-11-03] MEDS ORDERED: chlordiazePOXIDE HCL 10 MG CAPSULE PO ONE (05:00)
== END 2018-10-31 11:13 | disposition home or self-care (01) | DRG 775 ==
LOC: YASAS 22:20 → Y6N 23:38
PROVIDERS: ADMIT Surgery; ATTEND Surgery
PROC: HZ2ZZZZ Detoxification Services for Substance Abuse Treatment (ICD-10-PCS; principal; 2018-10-29)
DX: F10.230 Alcohol dependence with withdrawal, uncomplicated (principal); F17.210 Nicotine dependence, cigarettes, uncomplicated; E87.6 Hypokalemia; K21.9 Gastro-esophageal reflux disease without esophagitis
CPT/HCPCS: 36415; 80053; 85027; 86593

== ENCOUNTER 2019-02-16 18:42 | Inpatient (IN) | payer OTHER ==
[2019-02-16 19:15] VITALS: BMI 21.4
--- NOTE | 2019-02-16 22:08 | HP ---
CIWA Score Nausea/Vomitin Muscle Tremors: None Anxiety: 5 Agitation: 5 Paroxysmal Sweats: 3 Orientation: 1-Uncertain about Date Tacttile Disturbances: 0-None Auditory Disturbances: 0-None Visual Disturbances: 0-None Headache: 4-Moderately Severe CIWA-Ar Total Score: 21 - Admission Criteria OASAS Guidelines: Admission for Medically Managed Detox: Requires at least one of the followin. CIWA greater than 12 2. Seizures within the past 24 hours 3. Delirium tremens within the past 24 hours 4. Hallucinations within the past 24 hours 5. Acute intervention needed for co occurring medical disorder 6. Acute intervention needed for co occurring psychiatric disorder 7. Severe withdrawal that cannot be handled at a lower level of care (continued vomiting, continued diarrhea, abnormal vital signs) requiring intravenous medication and/or fluids 8. Patient presents the following: CIWA greater than 12 Admission Criteria Met: Admission criteria met Admitting History and Physical - Smoking History Smoking history: Smoker current status UNK Have you smoked in the past 12 months: No Aproximately how many cigarettes per day: 8 - Alcohol/Substance Use Hx Alcohol Use: Yes Admission ROS [facility] Chief Complaint: here for alcohol detox Allergies/Adverse Reactions: Allergies Allergy/AdvReac Type Severity Reaction Status Date / Time No Known Allergies Allergy Verified 10/29/18 22:59 History of Present Illness: ADMITTED FOR ALCOHOL DETOX. CLIENT IS SELF REFERRED. KNOWN TO PROGRAM . LAST HERE 10/2018. PRESENTS WITH INTOXICATION AND ONSET OF WITHDRAWAL SX'S. HE REPORTS DAILY ALCOHOL INTAKE. 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 DENIES BLACK OUTS , SEIZURES.LONGEST CLEAN TIME 6 MONTHS DENIES ANY FOR THIS PAST YEAR. LIVES WITH MOTHER, UNEMPLOYED, DENIES LEGALS Exam Limitations: Intoxication ([place]ALL[place]) - Ebola screening Have you traveled outside of the country in the last 21 days: No (N) Have you had contact with anyone from an Ebola affected area: No Do you have a fever: No - Review of Systems Constitutional: Chills, Loss of Appetite, Night Sweats, Changes in sleep EENT: reports: No Symptoms Reported Respiratory: reports: No Symptoms reported Cardiac: reports: No Symptoms Reported GI: reports: Nausea, Poor Appetite, Poor Fluid Intake, Vomiting : reports: No Symptoms Reported Musculoskeletal: reports: No Symptoms Reported Integumentary: reports: Dryness Neuro: reports: No Symptoms reported Endocrine: reports: No Symptoms Reported Hematology: reports: No Symptoms Reported Psychiatric: reports: Agitated (IRRITABLE) Other Systems: Reviewed and Negative Patient History - Patient Medical History Hx Anemia: No Hx Asthma: No Hx Chronic Obstructive Pulmonary Disease (COPD): No Hx Cancer: No Hx Cardiac Disorders: No Hx Congestive Heart Failure: No Hx Hypertension: No Hx Hypercholesterolemia: No Hx Pacemaker: No HX Cerebrovascular Accident: No Hx Seizures: No Hx Dementia: No Hx Diabetes: No Hx Gastrointestinal Disorders: Yes (GERD) Hx Liver Disease: No Hx Genitourinary Disorders: No Hx Sexually Transmitted Disorders: No Hx Renal Disease (ESRD): No Hx Thyroid Disease: No Hx Human Immunodeficiency Virus (HIV): No Hx Hepatitis C: No Hx Depression: No Hx Suicide Attempt: No Hx Bipolar Disorder: No Hx Schizophrenia: No Other Medical History: DENIES - Patient Surgical History Past Surgical History: Yes Hx Neurologic Surgery: No Hx Cataract Extraction: No Hx Cardiac Surgery: No Hx Lung Surgery: No Hx Breast Surgery: No Hx Breast Biopsy: No Hx Abdominal Surgery: No Hx Appendectomy: No Hx Cholecystectomy: No Hx Genitourinary Surgery: No Hx Section: No Hx Orthopedic Surgery: No Other Surgical History: open heart 1985 Anesthesia Reaction: No - PPD History Previous Implant?: Yes Documented Results: Negative w/proof Implanted On Prior [facility] Admission?: Yes Date: 06/10/18 Results: 0MM PPD to be Administered?: No - Smoking Cessation Smoking history: Smoker current status UNK Have you smoked in the past 12 months: No Aproximately how many cigarettes per day: 8 Cigars Per Day: 0 Hx Chewing Tobacco Use: No Initiated information on smoking cessation: Yes 'Breaking Loose' booklet given: 02/16/19 - Substance & Tx. History Hx Alcohol Use: Yes Hx Substance Use: Yes Substance Use Type: Alcohol Hx Substance Use Treatment: Yes ([facility]) - Substances abused Alcohol Substance route: Oral Frequency: Daily Amount used: 5 beers Age of first use: 29 Date of last use: 02/15/19 Admission Physical Exam BHS - Vital Signs Vital Signs: Vital Signs - 24 hr 02/16/19 19:05 Temperature 97.3 F L Pulse Rate 113 H Respiratory 16 Rate Blood Pressure 125/88 - Physical General Appearance: Yes: Mild Distress, Intoxicated (clinically stable), Irritable, Anxious HEENTM: Yes: EOMI, Normocephalic, Normal Voice, STEVEN, Pharynx Normal, Other ( top dentures) Respiratory: Yes: Chest Non-Tender, Lungs Clear, Normal Breath Sounds, No Respiratory Distress, No Accessory Muscle Use Neck: Yes: No masses,lesions,Nodules, Supple, Trachea in good position Breast: Yes: Breasts Symetrical Cardiology: Yes: Regular Rhythm, Regular Rate, S1, S2 Abdominal: Yes: Normal Bowel Sounds, Non Tender, Soft, Surgical Scar Genitourinary: Yes: Within Normal Limits Back: Yes: Normal Inspection Musculoskeletal: Yes: full range of Motion, Gait Steady Extremities: Yes: Normal Capillary Refill, Normal Range of Motion, Non-Tender Neurological: Yes: Alert, Motor Strength 5/5 Integumentary: Yes: Dry, Warm Lymphatic: Yes: Within Normal Limits - Diagnostic (1) Alcohol dependence with uncomplicated withdrawal Current Visit: Yes Status: Acute (2) GERD (gastroesophageal reflux disease) Current Visit: Yes Status: Chronic Qualifiers: Esophagitis presence: without esophagitis Qualified Code(s): K21.9 - Gastro -esophageal reflux disease without esophagitis (3) Nicotine dependence Current Visit: Yes Status: Chronic Qualifiers: Nicotine product type: cigarettes Substance use status: uncomplicated Qualified Code(s): F17.210 - Nicotine dependence, cigarettes, uncomplicated Cleared for Admission S - Detox or Rehab [facility] Level of Care: Medically Managed ([facility]) Claeared for Rehab Admission: No Breathalyzer - Breathalyzer Breathalyzer: 0.257 Urine Drug Screen - Test Device Lot number: [id number] Expiration date: 10/06/20 - Control Is test valid?: Yes - Results Drug screen NEGATIVE: Yes Urine drug screen results: BZO-Benzodiazepines Inpatient Rehab Admission - Rehab Decision to Admit Inpatient rehab admission?: No
[2019-02-16] MEDS ORDERED: MENTHOL/PHENOL 1 EACH UD MM PRN (22:11)
[2019-02-16] MEDS ORDERED: MAGNESIUM CITRATE 300 ML BOTTLE PO PRN (22:11)
[2019-02-16] MEDS ORDERED: DICYCLOMINE HCL 10 MG CAPSULE PO PRN (22:11)
[2019-02-16] MEDS ORDERED: MAGNESIUM HYDROX 2400MG/30ML ORAL SUSPENSION 30 ML CUP PO PRN (22:11)
[2019-02-16] MEDS ORDERED: ONDANSETRON *ODT* 4 MG TABLET SL PRN (22:11)
[2019-02-16] MEDS ORDERED: hydrOXYzine PAMOATE 25 MG CAPSULE (FP) PO PRN (22:11)
[2019-02-16] MEDS ORDERED: BISMUTH SUBSALICYLATE 524 MG/30 ML UD PO PRN (22:11)
[2019-02-16] MEDS ORDERED: ACETAMINOPHEN 325 MG TABLET (FP) PO PRN ×2 (22:11)
[2019-02-16] MEDS ORDERED: IBUPROFEN 400 MG TABLET (FP) PO PRN (22:11)
[2019-02-16] MEDS ORDERED: NICOTINE POLACRILEX 2 MG GUM BUC PRN (22:11)
[2019-02-16] MEDS ORDERED: METHOCARBAMOL 500 MG TABLET PO PRN (22:11)
[2019-02-16] MEDS ORDERED: LORazepam 1 MG TABLET PO PRN (22:11)
[2019-02-16] MEDS ORDERED: MAG HYDROX/AL HYDROX/SIMETH 30 ML UNIT-DOSE CUP PO PRN (22:11)
[2019-02-16] MEDS: LORazepam 2 MG TABLET PO SCH (23:26)
[2019-02-16] MEDS: MELATONIN 5 MG TABLETS PO PRN (23:31)
[2019-02-17] MEDS: LORazepam 2 MG TABLET PO SCH ×4 (05:50→22:17)
[2019-02-17] MEDS: P-EPHED 60MG/TRIPROLIDI 2.5MG TABLET PO PRN (07:51)
[2019-02-17] MEDS: PRENATAL VITAMINS W/ FOLIC ACID TABLET (FP) PO SCH (10:08)
[2019-02-17] MEDS: NICOTINE 14 MG/24 HOURS TOPICAL PATCH TD SCH (10:08)
--- NOTE | 2019-02-17 10:20 | PN ---
[facility] CIWA - CIWA Score Nausea/Vomitin-No Nausea/No Vomiting Muscle Tremors: 3 Anxiety: 3 Agitation: 3 Paroxysmal Sweats: 3 Orientation: 0-Oriented Tacttile Disturbances: 0-None Auditory Disturbances: 0-None Visual Disturbances: 0-None Headache: 0-None Present CIWA-Ar Total Score: 12 S Progress Note (SOAP) Subjective: sweats body aches interrupted sleep mild shakes irritable Objective: 02/17/19 10:21 Vital Signs Temperature 98.2 F 02/17/19 09:30 Pulse Rate 99 H 02/17/19 09:30 Respiratory Rate 18 02/17/19 09:30 Blood Pressure 130/75 02/17/19 09:30 O2 Sat by Pulse Oximetry (%) labs noted aaox3 ambulating no acute distress Assessment: 02/17/19 10:22 withdrawals Plan: continue detox increase fluids labs pending
--- NOTE | 2019-02-17 10:42 | EKG ---
Test Reason : Blood Pressure : / mmHG Vent. Rate : 078 BPM Atrial Rate : 078 BPM P-R Int : 164 ms QRS Dur : 138 ms QT Int : 432 ms P-R-T Axes : 076 033 050 degrees QTc Int : 492 ms NORMAL SINUS RHYTHM RIGHT BUNDLE BRANCH BLOCK SEPTAL INFARCT (CITED ON OR BEFORE 09-JUN-2018) ABNORMAL ECG WHEN COMPARED WITH ECG OF 09-JUN-2018 05:20, QUESTIONABLE CHANGE IN INITIAL FORCES OF SEPTAL LEADS T WAVE INVERSION NO LONGER EVIDENT IN INFERIOR LEADS NONSPECIFIC T WAVE ABNORMALITY HAS REPLACED INVERTED T WAVES IN ANTERIOR LEADS Confirmed by TAVO VALDES, MAXX ([id number]) on 02/17/2019 10:42:03 AM Referred By: Mark Zapien Confirmed By:MAXX VO MD
[2019-02-17 11:44] LABS: HEMATOCRIT 44.9 % (35.4-49); HEMOGLOBIN 15.2 GM/dL (11.7-16.9); MCH 32.6 pg (25.7-33.7); MCHC 33.8 g/dl (32.0-35.9); MEAN CELL VOLUME 96.3 fl (80-96); MEAN PLT VOLUME 8.1 fl (7.5-11.1); PLATELET COUNT 83 K/MM3 (134-434); RBC 4.66 M/mm3 (4.00-5.60); RDW 13.5 % (11.9-15.9); WHITE BLOOD COUNT 2.1 K/mm3 (4.0-10.0)
[2019-02-17 12:08] LABS: ALBUMIN 4.3 g/dl (3.4-5.0); BILIRUBIN,TOTAL 1.8 mg/dL (0.2-1); CALCIUM 9.2 mg/dL (8.5-10.1); CREATININE 0.7 mg/dL (0.55-1.3); POTASSIUM 3.6 mmol/L (3.5-5.1); TOT PROT 7.6 g/dl (6.4-8.2)
--- NOTE | 2019-02-17 13:39 | PN ---
[facility] Progress Note Note: Laboratory Tests 02/17/19 02/17/19 02/17/19 08:00 08:00 08:00 WBC 2.1 L RBC 4.66 Hgb 15.2 Hct 44.9 MCV 96.3 H MCH 32.6 MCHC 33.8 RDW 13.5 Plt Count 83 L MPV 8.1 Sodium 137 Potassium 3.6 Chloride 100 Carbon Dioxide 26 Anion Gap 11 BUN 8.0 Creatinine 0.7 Est GFR (CKD-EPI)AfAm 128.43 Est GFR (CKD-EPI)NonAf 110.81 Random Glucose 99 Calcium 9.2 Total Bilirubin 1.8 H AST 283 H ALT 204 H Alkaline Phosphatase 140 H Total Protein 7.6 Albumin 4.3 RPR Titer Nonreactive low WBC elevated liver enzymes d/c tylenol encourage fluids intake repeat labs
[2019-02-17] MEDS: THIAMINE HCL 100 MG TABLET (FP) PO SCH (22:17)
[2019-02-17] MEDS: MELATONIN 5 MG TABLETS PO PRN (22:18)
[2019-02-18] MEDS: LORazepam 1 MG TABLET PO SCH ×4 (05:56→22:23)
[2019-02-18] MEDS ORDERED: cloNIDine HCL 0.1 MG TABLET PO ONE (09:47)
[2019-02-18 10:02] LABS: BASO % 0.6 % (0-2.0); EOS % 1.1 % (0-4.5); HEMATOCRIT 43.8 % (35.4-49); HEMOGLOBIN 14.9 GM/dL (11.7-16.9); LYMPH % 20.7 % (8-40); MCH 32.9 pg (25.7-33.7); MCHC 34.1 g/dl (32.0-35.9); MEAN CELL VOLUME 96.3 fl (80-96); MEAN PLT VOLUME 8.6 fl (7.5-11.1); MONO % 12.9 % (3.8-10.2); NEUT % 64.7 % (42.8-82.8); PLATELET COUNT 67 K/MM3 (134-434); RBC 4.54 M/mm3 (4.00-5.60); RDW 12.9 % (11.9-15.9); WHITE BLOOD COUNT 2.7 K/mm3 (4.0-10.0)
--- NOTE | 2019-02-18 10:15 | PN ---
S CIWA - CIWA Score Nausea/Vomitin-No Nausea/No Vomiting Muscle Tremors: 3 Anxiety: 2 Agitation: 2 Paroxysmal Sweats: 2 Orientation: 0-Oriented Tacttile Disturbances: 0-None Auditory Disturbances: 0-None Visual Disturbances: 0-None Headache: 0-None Present CIWA-Ar Total Score: 9 BHS Progress Note (SOAP) Subjective: sweats body aches interrupted sleep Objective: 02/18/19 10:10 Vital Signs Temperature 97.2 F L 02/18/19 09:40 Pulse Rate 120 H 02/18/19 09:40 Respiratory Rate 19 02/18/19 09:40 Blood Pressure 147/82 02/18/19 09:40 O2 Sat by Pulse Oximetry (%) Laboratory Tests 02/17/19 02/17/19 02/17/19 08:00 08:00 08:00 WBC 2.1 L RBC 4.66 Hgb 15.2 Hct 44.9 MCV 96.3 H MCH 32.6 MCHC 33.8 RDW 13.5 Plt Count 83 L MPV 8.1 Absolute Neuts (auto) Neutrophils % Lymphocytes % Monocytes % Eosinophils % Basophils % Nucleated RBC % Sodium 137 Potassium 3.6 Chloride 100 Carbon Dioxide 26 Anion Gap 11 BUN 8.0 Creatinine 0.7 Est GFR (CKD-EPI)AfAm 128.43 Est GFR (CKD-EPI)NonAf 110.81 Random Glucose 99 Calcium 9.2 Total Bilirubin 1.8 H AST 283 H ALT 204 H Alkaline Phosphatase 140 H Total Protein 7.6 Albumin 4.3 RPR Titer Nonreactive 02/18/19 08:00 WBC 2.7 L RBC 4.54 Hgb 14.9 Hct 43.8 MCV 96.3 H MCH 32.9 MCHC 34.1 RDW 12.9 Plt Count 67 L MPV 8.6 Absolute Neuts (auto) 1.7 Neutrophils % 64.7 Lymphocytes % 20.7 Monocytes % 12.9 H Eosinophils % 1.1 Basophils % 0.6 Nucleated RBC % 0 Sodium Potassium Chloride Carbon Dioxide Anion Gap BUN Creatinine Est GFR (CKD-EPI)AfAm Est GFR (CKD-EPI)NonAf Random Glucose Calcium Total Bilirubin AST ALT Alkaline Phosphatase Total Protein Albumin RPR Titer aaox3 lying in bed no acute distress Assessment: 02/18/19 10:15 withdrawals Plan: continue detox increase fluids
[2019-02-18 10:21] LABS: BILIRUBIN,TOTAL 1.8 mg/dL (0.2-1); BLOOD UREA NITROGEN 8.6 mg/dL (7-18); CALCIUM 9.2 mg/dL (8.5-10.1); CREATININE 0.7 mg/dL (0.55-1.3); POTASSIUM 3.4 mmol/L (3.5-5.1)
[2019-02-18] MEDS: NICOTINE 14 MG/24 HOURS TOPICAL PATCH TD SCH (10:43)
[2019-02-18] MEDS: PRENATAL VITAMINS W/ FOLIC ACID TABLET (FP) PO SCH (10:44)
[2019-02-18] MEDS: P-EPHED 60MG/TRIPROLIDI 2.5MG TABLET PO PRN (16:35)
[2019-02-18] MEDS: MELATONIN 5 MG TABLETS PO PRN (22:23)
[2019-02-18] MEDS: THIAMINE HCL 100 MG TABLET (FP) PO SCH (22:23)
[2019-02-19] MEDS ORDERED: LORazepam 0.5 MG TABLET PO PRN
[2019-02-19] MEDS: LORazepam 0.5 MG TABLET PO SCH ×2 (05:45→10:30)
[2019-02-19] MEDS: NICOTINE 14 MG/24 HOURS TOPICAL PATCH TD SCH (10:29)
[2019-02-19] MEDS: PRENATAL VITAMINS W/ FOLIC ACID TABLET (FP) PO SCH (10:30)
--- NOTE | 2019-02-19 10:45 | PN ---
S CIWA - CIWA Score Nausea/Vomitin-Mild Nausea/No Vomiting Muscle Tremors: 1-None Visible, but [place] Anxiety: 0-No Anxiety, at Ease Agitation: 0-Normal Activity Paroxysmal Sweats: No Perspiration Orientation: 0-Oriented Tacttile Disturbances: 0-None Auditory Disturbances: 0-None Visual Disturbances: 0-None Headache: 0-None Present CIWA-Ar Total Score: 2 BHS Progress Note (SOAP) Subjective: I am feeling better I want to go to rehab. Objective: 02/19/19 10:42 Vital Signs Temperature 96.8 F L 02/19/19 10:29 Pulse Rate 117 H 02/19/19 10:29 Respiratory Rate 20 02/19/19 10:29 Blood Pressure 118/55 L 02/19/19 10:29 O2 Sat by Pulse Oximetry (%) Laboratory Tests 02/17/19 02/17/19 02/17/19 08:00 08:00 08:00 WBC 2.1 L RBC 4.66 Hgb 15.2 Hct 44.9 MCV 96.3 H MCH 32.6 MCHC 33.8 RDW 13.5 Plt Count 83 L MPV 8.1 Absolute Neuts (auto) Neutrophils % Lymphocytes % Monocytes % Eosinophils % Basophils % Nucleated RBC % Sodium 137 Potassium 3.6 Chloride 100 Carbon Dioxide 26 Anion Gap 11 BUN 8.0 Creatinine 0.7 Est GFR (CKD-EPI)AfAm 128.43 Est GFR (CKD-EPI)NonAf 110.81 Random Glucose 99 Calcium 9.2 Total Bilirubin 1.8 H AST 283 H ALT 204 H Alkaline Phosphatase 140 H Total Protein 7.6 Albumin 4.3 RPR Titer Nonreactive 02/18/19 02/18/19 08:00 08:00 WBC 2.7 L RBC 4.54 Hgb 14.9 Hct 43.8 MCV 96.3 H MCH 32.9 MCHC 34.1 RDW 12.9 Plt Count 67 L MPV 8.6 Absolute Neuts (auto) 1.7 Neutrophils % 64.7 Lymphocytes % 20.7 Monocytes % 12.9 H Eosinophils % 1.1 Basophils % 0.6 Nucleated RBC % 0 Sodium 136 Potassium 3.4 L Chloride 101 Carbon Dioxide 27 Anion Gap 8 BUN 8.6 Creatinine 0.7 Est GFR (CKD-EPI)AfAm 128.43 Est GFR (CKD-EPI)NonAf 110.81 Random Glucose 138 H Calcium 9.2 Total Bilirubin 1.8 H AST 134 H ALT 145 H Alkaline Phosphatase 128 H Total Protein 7.0 Albumin 4.0 RPR Titer aaox3 ambulating no acute distress no s/s of withdrawals Assessment: 02/19/19 10:44 mild to no withdrawals noted Plan: d/c today to rehab
--- NOTE | 2019-02-19 10:48 | DS ---
[facility] Detox Discharge Summary Admission Date: 02/16/19 Discharge Date: 02/19/19 - History Present History: Alcohol Dependence, Sedative Dependence - Physical Exam Results Vital Signs: Vital Signs Temperature 96.8 F L 02/19/19 10:29 Pulse Rate 117 H 02/19/19 10:29 Respiratory Rate 20 02/19/19 10:29 Blood Pressure 118/55 L 02/19/19 10:29 O2 Sat by Pulse Oximetry (%) Pertinent Admission Physical Exam Findings: Vital Signs Temperature 96.8 F L 02/19/19 10:29 Pulse Rate 107 02/19/19 10:29 Respiratory Rate 18 02/19/19 10:29 Blood Pressure 122/64 02/19/19 10:29 O2 Sat by Pulse Oximetry (%) Laboratory Tests 02/17/19 02/17/19 02/17/19 08:00 08:00 08:00 WBC 2.1 L RBC 4.66 Hgb 15.2 Hct 44.9 MCV 96.3 H MCH 32.6 MCHC 33.8 RDW 13.5 Plt Count 83 L MPV 8.1 Absolute Neuts (auto) Neutrophils % Lymphocytes % Monocytes % Eosinophils % Basophils % Nucleated RBC % Sodium 137 Potassium 3.6 Chloride 100 Carbon Dioxide 26 Anion Gap 11 BUN 8.0 Creatinine 0.7 Est GFR (CKD-EPI)AfAm 128.43 Est GFR (CKD-EPI)NonAf 110.81 Random Glucose 99 Calcium 9.2 Total Bilirubin 1.8 H AST 283 H ALT 204 H Alkaline Phosphatase 140 H Total Protein 7.6 Albumin 4.3 RPR Titer Nonreactive 02/18/19 02/18/19 08:00 08:00 WBC 2.7 L RBC 4.54 Hgb 14.9 Hct 43.8 MCV 96.3 H MCH 32.9 MCHC 34.1 RDW 12.9 Plt Count 67 L MPV 8.6 Absolute Neuts (auto) 1.7 Neutrophils % 64.7 Lymphocytes % 20.7 Monocytes % 12.9 H Eosinophils % 1.1 Basophils % 0.6 Nucleated RBC % 0 Sodium 136 Potassium 3.4 L Chloride 101 Carbon Dioxide 27 Anion Gap 8 BUN 8.6 Creatinine 0.7 Est GFR (CKD-EPI)AfAm 128.43 Est GFR (CKD-EPI)NonAf 110.81 Random Glucose 138 H Calcium 9.2 Total Bilirubin 1.8 H AST 134 H ALT 145 H Alkaline Phosphatase 128 H Total Protein 7.0 Albumin 4.0 RPR Titer aaox3 ambulating no acute distress liver enzymes improving - Treatment Hospital Course: Detox Protocol Followed, Detoxed Safely, Responded well, Discharged Condition Good, Rehab Referral Accepted Patient has Accepted a Rehab Referral to: pt referred to [facility] inpatient rehab - Medication Discharge Medications: Ambulatory Orders NK [No Known Home Medication] 06/09/18 - Diagnosis (1) Alcohol dependence with uncomplicated withdrawal Current Visit: Yes Status: Chronic (2) GERD (gastroesophageal reflux disease) Current Visit: Yes Status: Chronic Qualifiers: Esophagitis presence: without esophagitis Qualified Code(s): K21.9 - Gastro -esophageal reflux disease without esophagitis (3) Nicotine dependence Current Visit: Yes Status: Chronic Qualifiers: Nicotine product type: cigarettes Substance use status: uncomplicated Qualified Code(s): F17.210 - Nicotine dependence, cigarettes, uncomplicated - AMA Did Patient Leave Against Medical Advice: Yes
[2019-02-19 13:10] VITALS: BP 121/71; PULSE 110; TEMP 96.6
[2019-02-20] MEDS ORDERED: LORazepam 0.5 MG TABLET PO ONE (05:00)
== END 2019-02-19 14:06 | disposition other institution (70) | DRG 775 ==
LOC: YASAS 18:42 → Y6N 22:49
PROVIDERS: ADMIT Allergy & Immunology; ATTEND Allergy & Immunology
PROC: HZ2ZZZZ Detoxification Services for Substance Abuse Treatment (ICD-10-PCS; principal; 2019-02-16)
DX: F10.230 Alcohol dependence with withdrawal, uncomplicated (principal); F17.210 Nicotine dependence, cigarettes, uncomplicated; K21.9 Gastro-esophageal reflux disease without esophagitis; R94.5 Abnormal results of liver function studies; D72.819 Decreased white blood cell count, unspecified
CPT/HCPCS: 36415; 80053; 85025; 85027; 86593; 93005; 93010; J0735; Q0162

== ENCOUNTER 2019-02-19 14:39 | Inpatient (IN) | payer OTHER ==
--- NOTE | 2019-02-19 15:13 | PN ---
[facility] Progress Note Note: Patient admitted to [facility] from detox. Last three admissions reviewed. All admissions were for ETOH treatment. There were no psychiatric consults during each admission. Patient has had no known home medications.
[2019-02-19] MEDS ORDERED: MAG HYDROX/AL HYDROX/SIMETH 30 ML UNIT-DOSE CUP PO PRN (15:40)
[2019-02-19] MEDS ORDERED: NICOTINE POLACRILEX 2 MG GUM BUC PRN (15:40)
[2019-02-19] MEDS ORDERED: MAGNESIUM HYDROX 2400MG/30ML ORAL SUSPENSION 30 ML CUP PO PRN (15:40)
[2019-02-19] MEDS ORDERED: MAGNESIUM CITRATE 300 ML BOTTLE PO PRN (15:40)
[2019-02-19] MEDS ORDERED: ACETAMINOPHEN 325 MG TABLET (FP) PO PRN (15:40)
[2019-02-19] MEDS ORDERED: LOPERAMIDE HCL 2 MG CAPSULE PO PRN (15:40)
[2019-02-19] MEDS: THIAMINE HCL 100 MG TABLET (FP) PO SCH (21:15)
[2019-02-19] MEDS: MELATONIN 5 MG TABLETS PO PRN (21:16)
[2019-02-20] MEDS: PRENATAL VITAMINS W/ FOLIC ACID TABLET (FP) PO SCH (09:51)
[2019-02-20] MEDS: NICOTINE 14 MG/24 HOURS TOPICAL PATCH TD SCH (09:51)
[2019-02-20] MEDS: hydrOXYzine PAMOATE 25 MG CAPSULE (FP) PO PRN (09:52)
[2019-02-20] MEDS: THIAMINE HCL 100 MG TABLET (FP) PO SCH (21:31)
[2019-02-20] MEDS: MELATONIN 5 MG TABLETS PO PRN (21:31)
[2019-02-21] MEDS: PRENATAL VITAMINS W/ FOLIC ACID TABLET (FP) PO SCH (09:20)
[2019-02-21] MEDS: hydrOXYzine PAMOATE 25 MG CAPSULE (FP) PO PRN ×2 (09:21→21:09)
[2019-02-21] MEDS: NICOTINE 14 MG/24 HOURS TOPICAL PATCH TD SCH (09:49)
[2019-02-21] MEDS: THIAMINE HCL 100 MG TABLET (FP) PO SCH (21:09)
[2019-02-21] MEDS: MELATONIN 5 MG TABLETS PO PRN (21:09)
[2019-02-22] MEDS: IBUPROFEN 400 MG TABLET (FP) PO PRN (04:39)
[2019-02-22] MEDS: PRENATAL VITAMINS W/ FOLIC ACID TABLET (FP) PO SCH (09:38)
[2019-02-22] MEDS: NICOTINE 14 MG/24 HOURS TOPICAL PATCH TD SCH (09:39)
[2019-02-22] MEDS: HYDROCORTISONE 2.5% TOPICAL CREAM 30 GM TUBE PR SCH (22:34)
[2019-02-22] MEDS: THIAMINE HCL 100 MG TABLET (FP) PO SCH (22:34)
[2019-02-23] MEDS: IBUPROFEN 400 MG TABLET (FP) PO PRN (03:45)
[2019-02-23] MEDS: PRENATAL VITAMINS W/ FOLIC ACID TABLET (FP) PO SCH (09:34)
[2019-02-23] MEDS: NICOTINE 14 MG/24 HOURS TOPICAL PATCH TD SCH (09:34)
--- NOTE | 2019-02-23 13:56 | PN ---
[facility] Progress Note (SOAP) Subjective: patient with QT prolongation. Objective: Vital Signs Period Temp Pulse Resp BP Sys/Greco Pulse Ox Last 24 Hr 98.4 F 79 18-20 106/75 02/23/19 13:57 general: no apparent distress HEENTM; normocephalic, PERRLA neck: no JVD, supple, lungs: clear Heart: s1 s2 ABD: +BS
--- NOTE | 2019-02-23 15:00 | PN ---
S Progress Note Note: S: patient reports insomnia O: General: no apparent distress HEEENTM: normocephalic, PERRLA Lungs: clear Heart: s1 s2 Neuro: CN 2-12 intact. A/P: insomnia, psych consult requested, melatonin increased to 10 mg.
[2019-02-23] MEDS: THIAMINE HCL 100 MG TABLET (FP) PO SCH (21:14)
[2019-02-23] MEDS: MELATONIN 5 MG TABLETS PO PRN (21:15)
[2019-02-23] MEDS: HYDROCORTISONE 2.5% TOPICAL CREAM 30 GM TUBE PR SCH (21:15)
[2019-02-24] MEDS: NICOTINE 14 MG/24 HOURS TOPICAL PATCH TD SCH (10:01)
[2019-02-24] MEDS: PRENATAL VITAMINS W/ FOLIC ACID TABLET (FP) PO SCH (10:01)
--- NOTE | 2019-02-24 15:27 | CONSULT ---
[facility] Psychiatric Consult - Data Date of interview: 02/24/19 Admission source: [facility] Identifying data: Patient is a 48 year old single male, father of one, unemployed, domiciled, and is supported by food stamps. This is one of multiple admissions for patient. Patient admitted to for alcohol dependence. Substance Abuse History: Smoking Cessation. Smoking history: Smoker current status UNK. Have you smoked in the past 12 months: No. Aproximately how many cigarettes per day: 8. Cigars Per Day: 0. Hx Chewing Tobacco Use: No. Initiated information on smoking cessation: Yes. 'Breaking Loose' booklet given : 02/16/19. - Substance & Tx. History. Hx Alcohol Use: Yes. Hx Substance Use : Yes. Substance Use Type: Alcohol. Hx Substance Use Treatment: Yes ([facility]). - Substances abused. Alcohol. Substance route: Oral. Frequency: Daily. Amount used: 5 beers. Age of first use: 29. Date of last use: 02/15/19 Medical History: Open heart surgery (1984), GERD Psychiatric History: Patient denies history of psychiatric hospitalizations, outpatient care and suicide attempt. At present, patient reports poor sleep despite accepting Melatonin 10mg. Physical/Sexual Abuse/Trauma History: denies. Mental Status Exam - Mental Status Exam Alert and Oriented to: Time, Place, Person Cognitive Function: Good Patient Appearance: Well Groomed Mood: Euthymic Affect: Mood Congruent Patient Behavior: Cooperative Speech Pattern: Appropriate Voice Loudness: Normal Thought Process: Goal Oriented Thought Disorder: Not Present Hallucinations: Denies Suicidal Ideation: Denies Homicidal Ideation: Denies Insight/Judgement: Poor Sleep: Poorly Appetite: Fair Muscle strength/Tone: Normal Gait/Station: Normal Psychiatric Findings - Problem List (Corn 1, 2,3) (1) Alcohol use disorder Current Visit: Yes Status: Acute (2) Nicotine dependence Current Visit: Yes Status: Chronic Qualifiers: Nicotine product type: cigarettes Substance use status: uncomplicated Qualified Code(s): F17.210 - Nicotine dependence, cigarettes, uncomplicated (3) Insomnia Current Visit: Yes Status: Acute - Initial Treatment Plan Initial Treatment Plan: Psychoeducation provided. Detoxification in progress. Will order Belsomra 10mg HS PRN. Benefits and side effects discussed. Verbal consent given.
[2019-02-24] MEDS: THIAMINE HCL 100 MG TABLET (FP) PO SCH (21:18)
[2019-02-24] MEDS: MELATONIN 5 MG TABLETS PO PRN (21:18)
[2019-02-24] MEDS: HYDROCORTISONE 2.5% TOPICAL CREAM 30 GM TUBE PR SCH (21:18)
[2019-02-24] MEDS: SUVOREXANT 10 MG TABLET PO PRN (21:19)
[2019-02-25] MEDS: PRENATAL VITAMINS W/ FOLIC ACID TABLET (FP) PO SCH (09:47)
[2019-02-25] MEDS: NICOTINE 14 MG/24 HOURS TOPICAL PATCH TD SCH (09:48)
[2019-02-25] MEDS: THIAMINE HCL 100 MG TABLET (FP) PO SCH (21:42)
[2019-02-25] MEDS: HYDROCORTISONE 2.5% TOPICAL CREAM 30 GM TUBE PR SCH (21:42)
[2019-02-25] MEDS: MELATONIN 5 MG TABLETS PO PRN (21:42)
[2019-02-25] MEDS: SUVOREXANT 10 MG TABLET PO PRN (21:43)
[2019-02-25] MEDS: guaiFENesin 200 MG/10 ML 10 ML UNIT-DOSE CUPS PO PRN (21:58)
[2019-02-26] MEDS: guaiFENesin 200 MG/10 ML 10 ML UNIT-DOSE CUPS PO PRN (05:34)
[2019-02-26] MEDS: P-EPHED 60MG/TRIPROLIDI 2.5MG TABLET PO PRN (07:03)
[2019-02-26] MEDS: PRENATAL VITAMINS W/ FOLIC ACID TABLET (FP) PO SCH (10:23)
[2019-02-26] MEDS: NICOTINE 14 MG/24 HOURS TOPICAL PATCH TD SCH (10:23)
[2019-02-26] MEDS: MELATONIN 5 MG TABLETS PO PRN (21:27)
[2019-02-26] MEDS: THIAMINE HCL 100 MG TABLET (FP) PO SCH (21:27)
[2019-02-26] MEDS: HYDROCORTISONE 2.5% TOPICAL CREAM 30 GM TUBE PR SCH (21:28)
[2019-02-27] MEDS: guaiFENesin 200 MG/10 ML 10 ML UNIT-DOSE CUPS PO PRN ×3 (03:10→21:19)
[2019-02-27] MEDS: PRENATAL VITAMINS W/ FOLIC ACID TABLET (FP) PO SCH (09:42)
[2019-02-27] MEDS: NICOTINE 14 MG/24 HOURS TOPICAL PATCH TD SCH (09:43)
--- NOTE | 2019-02-27 19:13 | PN ---
S Progress Note Note: Psychiatry Attending's note : Chart reviewed. Medication confirmed. Belsomra 10 mg po hs prn. Renewal : done. Order entered.
[2019-02-27] MEDS ORDERED: PT OWN MED DRAWER 7, Y5N ONE (19:23)
[2019-02-27] MEDS: HYDROCORTISONE 2.5% TOPICAL CREAM 30 GM TUBE PR SCH (21:16)
[2019-02-27] MEDS: THIAMINE HCL 100 MG TABLET (FP) PO SCH (21:17)
[2019-02-27] MEDS: MELATONIN 5 MG TABLETS PO PRN (21:17)
[2019-02-27] MEDS: SUVOREXANT 10 MG TABLET PO PRN (21:19)
[2019-02-28] MEDS: guaiFENesin 200 MG/10 ML 10 ML UNIT-DOSE CUPS PO PRN ×2 (06:12→18:31)
[2019-02-28] MEDS: NICOTINE 14 MG/24 HOURS TOPICAL PATCH TD SCH (09:53)
[2019-02-28] MEDS: PRENATAL VITAMINS W/ FOLIC ACID TABLET (FP) PO SCH (09:53)
[2019-02-28] MEDS: THIAMINE HCL 100 MG TABLET (FP) PO SCH (21:58)
[2019-02-28] MEDS: MELATONIN 5 MG TABLETS PO PRN (21:58)
[2019-02-28] MEDS: SUVOREXANT 10 MG TABLET PO PRN (22:00)
[2019-02-28] MEDS: HYDROCORTISONE 2.5% TOPICAL CREAM 30 GM TUBE PR SCH (23:34)
[2019-03-01] MEDS: guaiFENesin 200 MG/10 ML 10 ML UNIT-DOSE CUPS PO PRN ×3 (05:56→21:05)
[2019-03-01] MEDS: NICOTINE 14 MG/24 HOURS TOPICAL PATCH TD SCH (10:09)
[2019-03-01] MEDS: PRENATAL VITAMINS W/ FOLIC ACID TABLET (FP) PO SCH (10:09)
[2019-03-01] MEDS ORDERED: PT OWN MED DRAWER 7, Y5N ONE (10:27)
[2019-03-01] MEDS: MENTHOL/PHENOL 1 EACH UD MM PRN ×2 (15:29→21:05)
[2019-03-01] MEDS: MELATONIN 5 MG TABLETS PO PRN (21:03)
[2019-03-01] MEDS: THIAMINE HCL 100 MG TABLET (FP) PO SCH (21:03)
[2019-03-01] MEDS: SUVOREXANT 10 MG TABLET PO PRN (21:05)
[2019-03-01] MEDS: HYDROCORTISONE 2.5% TOPICAL CREAM 30 GM TUBE PR SCH (21:05)
[2019-03-02] MEDS: MENTHOL/PHENOL 1 EACH UD MM PRN ×2 (05:12→21:25)
[2019-03-02] MEDS: guaiFENesin 200 MG/10 ML 10 ML UNIT-DOSE CUPS PO PRN ×3 (05:12→21:25)
[2019-03-02] MEDS: PRENATAL VITAMINS W/ FOLIC ACID TABLET (FP) PO SCH (09:38)
[2019-03-02] MEDS: NICOTINE 14 MG/24 HOURS TOPICAL PATCH TD SCH (09:39)
[2019-03-02] MEDS ORDERED: WITCH HAZEL 50% (TUCKS) 40 PAD/JAR PAD TP PRN (15:08)
[2019-03-02] MEDS: MELATONIN 5 MG TABLETS PO PRN (21:24)
[2019-03-02] MEDS: THIAMINE HCL 100 MG TABLET (FP) PO SCH (21:24)
[2019-03-02] MEDS: HYDROCORTISONE 2.5% TOPICAL CREAM 30 GM TUBE PR SCH (21:25)
[2019-03-02] MEDS: SUVOREXANT 10 MG TABLET PO PRN (21:25)
[2019-03-03] MEDS: guaiFENesin 200 MG/10 ML 10 ML UNIT-DOSE CUPS PO PRN ×2 (04:38→16:50)
[2019-03-03] MEDS: PRENATAL VITAMINS W/ FOLIC ACID TABLET (FP) PO SCH (09:35)
[2019-03-03] MEDS: NICOTINE 14 MG/24 HOURS TOPICAL PATCH TD SCH (09:35)
[2019-03-03] MEDS: MELATONIN 5 MG TABLETS PO PRN (21:18)
[2019-03-03] MEDS: THIAMINE HCL 100 MG TABLET (FP) PO SCH (21:18)
[2019-03-03] MEDS: SUVOREXANT 10 MG TABLET PO PRN (21:19)
[2019-03-03] MEDS: HYDROCORTISONE 2.5% TOPICAL CREAM 30 GM TUBE PR SCH (21:19)
[2019-03-03] MEDS: MENTHOL/PHENOL 1 EACH UD MM PRN (21:49)
[2019-03-04] MEDS: guaiFENesin 200 MG/10 ML 10 ML UNIT-DOSE CUPS PO PRN ×2 (01:04→21:07)
[2019-03-04] MEDS: NICOTINE 14 MG/24 HOURS TOPICAL PATCH TD SCH (09:49)
[2019-03-04] MEDS: PRENATAL VITAMINS W/ FOLIC ACID TABLET (FP) PO SCH (09:49)
--- NOTE | 2019-03-04 10:14 | DS ---
[facility] Rehab Discharge Summary - [facility] Rehab Discharge Summary Admission Date: 02/19/19 Discharge Date: 03/04/19 - History Present History: Alcohol dependence Pertinent Past History: ADMITTED FOR ALCOHOL USE, SELF REFERRED. KNOWN TO PROGRAM . LAST HERE 10/2018. HE REPORTS DAILY ALCOHOL INTAKE. +EYE P[employer]. DENIES BLACK OUTS , SEIZURES.LONGEST CLEAN TIME 6 MONTHS DENIES ANY FOR THIS PAST YEAR. LIVES WITH MOTHER, UNEMPLOYED, DENIES LEGALS - Discharge Physical Exam Vital Signs: Vital Signs Temperature 98.0 F 03/04/19 06:51 Pulse Rate 88 03/04/19 06:51 Respiratory Rate 18 03/04/19 06:51 Blood Pressure 120/68 03/04/19 06:51 O2 Sat by Pulse Oximetry (%) Pertinent Admission Physical Exam Findings: General Appearance: No apparent distress HEENTM: Normocephalic, STEVEN, upper dentures Respiratory: Lungs Clear, Neck: Supple, Trachea in good position Cardiology:S1, S2 Abdominal: +Bowel Sounds, Non Tender, Soft, Surgical Scar Musculoskeletal: full range of Motion, Gait Steady Neurological: CN 2-12 - Treatment Discharge Condition: Outpatient referral accepted (Patient is going to [facility]. Medically stable for discharge.) Hospital Course: Patient attended groups, had 1:1 with his counselor, was seen by psychiatric service for insomnia. He was adherent to his medication regimen and treatment plan.He had not acute or urgent medical problems while in rehab. - Medication Discharge Medications: Ambulatory Orders NK [No Known Home Medication] 06/09/18 - Medication-Assisted Treatment (MAT) Medication-Assisted Treatment (MAT): No - Discharge Instructions Diet, activity, other medical instructions: Diet: as tolerated Activity: as tolerated Other medical instructions: Please follow up with aftercare referral and see PCP within 2 weeks of discharge. - Diagnosis (1) Alcohol use disorder Current Visit: Yes Status: Chronic - Follow-up Referral Minutes to complete discharge: 20 - AMA Did Patient Leave Against Medical Advice: No
[2019-03-04] MEDS: THIAMINE HCL 100 MG TABLET (FP) PO SCH (21:05)
[2019-03-04] MEDS: HYDROCORTISONE 2.5% TOPICAL CREAM 30 GM TUBE PR SCH (21:05)
[2019-03-04] MEDS: SUVOREXANT 10 MG TABLET PO PRN (21:06)
[2019-03-04] MEDS: MELATONIN 5 MG TABLETS PO PRN (21:06)
[2019-03-04] MEDS: MENTHOL/PHENOL 1 EACH UD MM PRN (21:08)
[2019-03-05] MEDS: guaiFENesin 200 MG/10 ML 10 ML UNIT-DOSE CUPS PO PRN (03:52)
[2019-03-05] MEDS: P-EPHED 60MG/TRIPROLIDI 2.5MG TABLET PO PRN (03:52)
[2019-03-05 07:52] VITALS: BP 107/67; PULSE 87; TEMP 97.8
[2019-03-05] MEDS: PRENATAL VITAMINS W/ FOLIC ACID TABLET (FP) PO SCH (09:11)
[2019-03-05] MEDS: NICOTINE 14 MG/24 HOURS TOPICAL PATCH TD SCH (09:12)
== END 2019-03-05 09:20 | disposition home or self-care (01) | DRG 772 ==
LOC: YASAS 14:39 → Y3W 14:40
PROVIDERS: ADMIT Neuromusculoskeletal Medicine & OMM; ATTEND Neuromusculoskeletal Medicine & OMM
PROC: HZ42ZZZ Group Counseling for Substance Abuse Treatment, Cognitive-Behavioral (ICD-10-PCS; principal; 2019-02-19)
DX: F10.20 Alcohol dependence, uncomplicated (principal); F17.210 Nicotine dependence, cigarettes, uncomplicated; G47.00 Insomnia, unspecified; K21.9 Gastro-esophageal reflux disease without esophagitis; Z86.79 Personal history of other diseases of the circulatory system